=== PATIENT | male | born 1935 | race Caucasian/White ===

== ENCOUNTER 2024-02-27 01:10 | Emergency (ER) | payer MEDICARE, OTHER, SELFPAY ==
[2024-02-27 01:27] VITALS: BP 93/54
--- NOTE | 2024-02-27 02:11 | ED.GENMED ---
History of Present Illness
General
Chief Complaint: Fall
Source: ambulance crew and correction
Exam Limitations: dementia
Time Seen by Provider: 02/27/24 01:21
Nursing documentation reviewed up to this point in time: agreed with
History of Present Illness
History of Present Illness:
This is an 88-year-old gentleman who was recently admitted to [facility] [place] February 16. 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
COPD, CHF, hyperkalemia, obstructive sleep apnea. He is sent to the ED for evaluation after suffering an unwitnessed fall. According to EMS no evidence of injury. Patient is at his baseline mental status.
He is also noted to be COVID-positive.
residential records reveal patient is DNR status.
There is also note of outpatient blood work noting potassium of 6, on-call correction physician aware and recommended discontinuing spironolactone.
Patient is awake and alert, nonverbal. I suspect he does not understand Bangladeshi but he does follow a few simple commands when motioned to do so.
Past History
Past History
ED Past Medical History: Arrthythmia (Paroxysmal atrial fibrillation), CAD, Cancer (Prostate cancer), CHF, COPD, GERD, HTN, Hypercholesterolemia, NIDDM, [place], Renal failure (Chronic kidney disease stage III) and Other (Obstructive sleep apnea,
pneumonia, sepsis, pleural effusion, metabolic encephalopathy, bladder cancer, UTI, COVID-positive January 2024)
Social History
Living: correction
Family History
Family History: Unable to obtain
Phy Exam
Physical Exam
Physical Exam:
GENERAL: 88-year-old gentleman appears his stated age, he is awake and alert, pleasant, appears in no acute distress. Nonverbal. He does follow a few simple commands.
EYE: The head is normocephalic, atraumatic. Pupils equal and reactive. anicteric
NECK: Supple, nontender, no meningismus, no significant adenopathy.
ENT: posterior pharynx is clear, oral mucosa is moist. TM clear b/l, nares patent.
CARDIAC: Regular rate and rhythm. no murmur.
LUNGS: Clear breath sounds bilaterally, no acute respiratory distress, no wheezes/rales/rhonchi
ABDOMEN: Soft, nondistended, without focal tenderness, no r/g, no cvat. normoactive BS.
NEUROLOGICAL: Awake and alert, nonverbal, no focal neuro deficits.
SKIN: Warm and dry, normal color, fair turgor, skin intact. Few dark purple subacute ecchymotic patches bilateral forearms. No soft tissue swelling.
MUSCULOSKELETAL: No C/C/E. peripheral pulses are full and equal b/l. No palpable tenderness. Full range of motion of extremities without difficulty nor pain.
PSYCH: Nonverbal. I suspect language barrier. Following a few simple commands. Cooperative.
Course
Orders/Labs/Results
Orders:
Orders
02/27/24 01:39
CT Head W/o Iv Contrast Urgent
Comment:
Reason For Exam: unwitnessed fall, on Eliquis
Vital Signs
Initial and Last Documented VS:
Initial Vital Signs
Temp Pulse Resp BP Pulse Ox
97.7 F 57 20 93/54 94
02/27/24 01:27 02/27/24 01:27 02/27/24 01:27 02/27/24 01:27 02/27/24 01:27
Last Documented Vital Signs
Temp Pulse Resp BP Pulse Ox
97.7 F 57 20 93/54 91
02/27/24 01:27 02/27/24 01:27 02/27/24 01:27 02/27/24 01:27 02/27/24 01:50
MDM/Problems Addressed
Differential Diagnosis Includes:
Elderly gentleman from correction presents after suffering an unwitnessed fall.
History of PAF maintained on Eliquis.
No traumatic findings on exam.
Appears to be at his baseline neurostatus.
Hemodynamically stable. Mildly soft BP but appears to be his baseline.
He has history of hyperkalemia as per correction records and reported potassium of 6. Already acknowledged by correction physician with orders to discontinue diuretic. At this point no indication to repeat labs.
Will check CT of the head.
Chronic conditions affecting care: DM, HTN, CAD, Arrhythmia (Chronically maintained on Eliquis. Risk for bleeding.), COPD, Neurological disorder, Kidney disease and Cancer
*Radiology
Radiology exam reviewed: radiology read reviewed (CT of the head shows no acute traumatic findings.)
*Pulse Oximetry
Patient hypoxic: no
*Radio News Writer Interpretation
Rate: bradycardiac
Interpretation: normal
Rhythm: sinus
*Critical Care Note
Total Time (30-74mins, 75-104mins- exclusive of procedures): Not Applicable
Update Note
Update Note:
02/27/[address] of the head is unremarkable.
Patient remains awake and alert, asking for sips of water.
Appears comfortable, in no distress, denies pain.
Will discharge back to correction for continued care.
ED Attending Note
-
Portions of this chart may have been created with voice recognition software.� Occasional wrong word or��sound alike� substitutions may have occurred due to the inherent limitations of voice recognition software.
Discharge Plan
Departure
Patient Disposition: Assisted/SNF
Date of Disposition: 02/27/24
Time of Disposition: 02:53
Patient with high blood pressure during this ER visit?: No
Condition: Good
Discharge Problem:
Fall at correction
Instructions: Preventing falls in adults
Referrals:
Stephen Carreon MD [Family Provider] - Call in 1-3 days for appt
Interventions
Interventions:
*General Assessment Last Done: 02/27/24 01:50
*Neglect/Abuse Screening Last Done: 02/27/24 01:50
*ED COVID-19 Vaccine History Last Done: 02/27/24 01:48
ED-Musculoskeletal Assessment Last Done: 02/27/24 01:50
ED- Neurological Assessment Last Done: 02/27/24 01:50
ED-Skin Assessment Last Done: 02/27/24 01:50
Discharge Date and Time
Print Language: GUATEMALAN
[2024-02-27 02:36] VITALS: BP 86/56
[2024-02-27 02:38] VITALS: BP 95/56
[2024-02-27 03:00] VITALS: BP 86/50
--- NOTE | 2024-02-27 14:10 | CM ---
YEE was contacted by Norma from [facility]. She is requesting a DUC referral sent to [facility]. YEE sent referral.
== END 2024-02-27 04:07 ==
LOC: EMR 01:10
PROVIDERS: EMERGENCY PHYSICIAN Emergency Medicine; FAMILY PHYSICIAN Internal Medicine
DX: Z03.89 Encounter for observation for other suspected diseases and conditions ruled out (principal); U07.1 COVID-19; W19.XXXA Unspecified fall, initial encounter; Y92.129 Unspecified place in nursing home as the place of occurrence of the external cause; R79.89 Other specified abnormal findings of blood chemistry; F02.80 Dementia in other diseases classified elsewhere, unspecified severity, without behavioral disturbance, psychotic disturbance, mood disturbance, and anxiety; G30.9 Alzheimer's disease, unspecified; I48.0 Paroxysmal atrial fibrillation; I13.0 Hypertensive heart and chronic kidney disease with heart failure and stage 1 through stage 4 chronic kidney disease, or unspecified chronic kidney disease; I50.9 Heart failure, unspecified; N18.30 Chronic kidney disease, stage 3 unspecified; E11.22 Type 2 diabetes mellitus with diabetic chronic kidney disease; E78.00 Pure hypercholesterolemia, unspecified; I42.9 Cardiomyopathy, unspecified; G47.33 Obstructive sleep apnea (adult) (pediatric); I25.10 Atherosclerotic heart disease of native coronary artery without angina pectoris; K21.9 Gastro-esophageal reflux disease without esophagitis; J44.9 Chronic obstructive pulmonary disease, unspecified; Z66 Do not resuscitate; I25.2 Old myocardial infarction; Z79.01 Long term (current) use of anticoagulants; Z85.46 Personal history of malignant neoplasm of prostate; Z85.51 Personal history of malignant neoplasm of bladder; Z87.440 Personal history of urinary (tract) infections
CPT/HCPCS: 99284; 70450

== ENCOUNTER 2024-03-12 14:40 | Inpatient (IN) | payer MEDICARE, OTHER, SELFPAY ==
[2024-03-12] VITALS (13 sets, daily range): BP systolic 69–99; BP diastolic 36–64; BMI 23.0; BMI 22.8
--- NOTE | 2024-03-12 09:18 | ED.GENMED ---
History of Present Illness
General
Chief Complaint: Weakness
Source: patient, records and ambulance crew
Exam Limitations: clinical condition, altered mental status and dementia
Time Seen by Provider: 03/12/24 08:56
Nursing documentation reviewed up to this point in time: agreed with
History of Present Illness
History of Present Illness:
88 male from a local [place] [facility] presents with fatigue, confusion EMS was called found to be bradycardic and hypotensive, was given atropine and 500 of saline perked up a little bit though still hypotensive, here is asking for water, looks
chronically ill, was seen in the ER a week or so ago with similar complaints at which time it was noted that he had COVID was deemed to be stable for discharge and sent back to his facility
Past History
Past History
ED Past Medical History: Arrthythmia (Paroxysmal atrial fibrillation), CAD, Cancer (Prostate cancer), CHF, COPD, GERD, HTN, Hypercholesterolemia, NIDDM, [place], Renal failure (Chronic kidney disease stage III) and Other (Obstructive sleep apnea,
pneumonia, sepsis, pleural effusion, metabolic encephalopathy, bladder cancer, UTI, COVID-positive January 2024)
Social History
Tobacco: Non-smoker
Alcohol: None
Drug: None
Living: [place] [facility]
Employment: Not employed
Family History
Family History: Unable to obtain
Review of Systems
Review of Systems
Unable to obtain full review of systems at this time due to: dementia
Other source history: ambulance crew
All Other Systems: Not applicable
Phy Exam
Physical Exam
Physical Exam:
Physical Exam
General: Chronically ill-appearing male bradycardic type with
Neck: Dry lips
Heart: s1/s2 regular rate and rhythm, no murmur. equal radial pulses.
Lungs: Bibasilar
Abdomen: Soft mild lower abdominal tender
Neuro: Opens eyes to voice, easily arousable, person tells me he is thirsty
Skin: no rash
Psychiatric: cooperative
Extremities: no edema.
Course
Orders/Labs/Results
Orders:
Orders
03/12/24 09:14
Electrocardiogram (*1) Urgent
Reason for Study: Other
Other Reason for Exam: sepsis
Cardiac Monitoring- Treatment ONCE
EKG- Treatment ONCE
IV Insert/Care/Rem.- Treatment PRN
0.9% Sodium Chloride 1000 ml [Nss] 1,000 ml IV BOLUS
CR Chest Portable - 1 View Urgent
Comment:
Reason For Exam: lowo bp
Reason Study Needs to be Portable: Patient Unstable
03/12/24 09:37
Complete Blood Count/With Diff Urgent
Comprehensive Metabolic Panel Urgent
03/12/24 10:37
0.9% Sodium Chloride 500 ml [Nss] 500 ml IV BOLUS
03/12/24 10:45
Urinalysis Reflex To Culture Urgent
Date Specimen was Collected: 03/12/24
Time Specimen was Collected: 10:39
Urine Microscopic Reflex Cult Urgent
Urine Culture Urgent
STEVE Source: U
Specimen Description:
Date Specimen was Collected: 03/12/24
Time Specimen was Collected: 10:39
03/12/24 12:27
Case Management Consult ONCE
Case Management Consult: Hospice
Hospice: Evaluation and treat
Abnormal Lab Results
03/12/24 03/12/24
09:37 10:45
RBC 4.06 L 10^6/uL
(4.70-6.10)
Hgb 11.8 L g/dL
(13.0-18.0)
Hct 34.4 L %
(39.0-52.0)
Plt Count 119 L 10^3/uL
(130-400)
MPV 10.7 H fL
(7.4-10.4)
Sodium 131 L mmol/L
(135-145)
Potassium 5.9 H mmol/L
(3.5-5.1)
Carbon Dioxide 18 L mmol/L
(22-30)
BUN 55 H mg/dl
(9-20)
Creatinine 1.8 H mg/dL
(0.7-1.3)
Total Protein 6.0 L g/dl
(6.3-8.2)
Albumin 3.1 L g/dl
(3.5-5.0)
Urine Nitrite (Reflex) Positive A
(Negative)
Leukocyte Esterase Rfl Trace A
(Negative)
Urine Bacteria (Reflex) Many A
(Negative)
03/12/24 09:37
03/12/24 09:37
Vital Signs
Initial and Last Documented VS:
Initial Vital Signs
Pulse Resp BP Pulse Ox
60 16 85/64 96
03/12/24 08:55 03/12/24 08:55 03/12/24 08:55 03/12/24 08:55
Last Documented Vital Signs
Temp Pulse Resp BP Pulse Ox
97.4 F 51 14 90/44 95
03/12/24 09:22 03/12/24 12:00 03/12/24 12:00 03/12/24 12:21 03/12/24 09:50
MDM/Problems Addressed
Differential Diagnosis Includes:
Sepsis dehydration UTI electrolyte abnormality renal failure conceivably primary cardiac event pneumonia
MDM/Problems Addressed:
Fatigue bradycardia weakness hypotensive
Chronic conditions affecting care: HTN, Neurological disorder and Kidney disease
Acute Exacerbation and/or Progression of Chronic Illness: HTN, Neurological disorder and Kidney disease
*Radiology
Radiology exam reviewed: radiology read reviewed
*Pulse Oximetry
Patient hypoxic: no
*EKG
Interpreted by ED Provider?: Yes
Interpretation: normal
Comparison EKG: no comparison EKG present
Heart Rate: 62
Rate: normal
Rhythm: sinus
Ischemia: no ischemia
*Contract Designer Interpretation
Rate: normal
Interpretation: normal
Heart Rate: 62
Rhythm: sinus
*Critical Care Note
Total Time (30-74mins, 75-104mins- exclusive of procedures): 20
Update Note
Update Note:
10:45 AM labs noted chest x-ray noted report noted EKG noted looks dry we will give another liter saline he is DNR/DNI status,
Update after 2 L blood pressure still low suspect he is not taking sufficient nutrients or food and is evidenced by the fact that I had an sip some water in the immediately started to gag and aspirate
Will ask case management to get their opinion re: hospice etc.
Discussed with catalytic case operator discussed with patient's son that he is not ready for hospice now at this point will require admission
ED Attending Note
-
Portions of this chart may have been created with voice recognition software.� Occasional wrong word or��sound alike� substitutions may have occurred due to the inherent limitations of voice recognition software.
Discharge Plan
Departure
Patient Disposition: Admit
Date of Disposition: 03/12/24
Time of Disposition: 13:28
Admit to: Med/Surg
Presentation/result/management discussed w/ accepting MD/DO: Hospitalist
Patient with high blood pressure during this ER visit?: No
Condition: Fair
Covid-19: Not Applicable
Discharge Problem:
Dehydration
Prescriptions:
No Action
atorvastatin 40 mg Tablet
40 mg PO DAILY
metformin 500 mg Tablet
500 mg PO DAILY
sennosides [senna] 8.6 mg Tablet
8.6 mg PO DAILYPRN PRN (Reason: constipation)
acetaminophen 325 mg Tablet
650 mg PO Q6HPRN PRN (Reason: temp >100.4/mild pain)
lidocaine 4 % Adhesive Patch,Medicated
1 patch TOPICAL DAILY
glipizide 10 mg Tablet
10 mg PO DAILY
travoprost [Travatan Z] 0.004 % Drops
1 drp BOTH EYES DAILY
meclizine 12.5 mg Tablet
12.5 mg PO TIDPRN PRN (Reason: dizziness)
aspirin 81 mg Tablet,Delayed Release (Dr/Ec)
81 mg PO DAILY
acetaminophen 500 mg Tablet
500 mg PO Q6HPRN PRN (Reason: mild pain)
prednisolone acetate 1 % Drops,Suspension
1 drp BOTH EYES QID
temazepam 15 mg Capsule
15 mg PO HSPRN PRN (Reason: insomnia/sleep)
magnesium hydroxide [Milk of Magnesia] 400 mg/5 mL Suspension
30 ml PO A12VQDL PRN (Reason: no bm 3 days)
carboxymethylcellulose sodium 0.5 % Drops
1 drp BOTH EYES DAILYPRN PRN (Reason: irritated eyes)
bisacodyl 10 mg Suppository
10 mg IA DAILYPRN PRN (Reason: if no results from mom)
erythromycin 5 mg/gram (0.5 %) Ointment
1 applic RIGHT EYE HS
betamethasone dipropionate 0.05 % Cream
1 applic TOPICAL DAILY
clonidine 0.3 mg/24 hr Patch Weekly
1 patch TRANSDERMAL SA
metoprolol succinate 25 mg Tablet Extended Release 24 Hr
25 mg PO DAILY
Rx Instructions:
Hold if SBP<100 pulse<60
timolol maleate 0.5 % Drops
1 drp BOTH EYES BID
clotrimazole [Lotrimin AF (clotrimazole)] 1 % Cream
1 applic TOPICAL DAILY
repaglinide 1 mg Tablet
1 mg PO BID
insulin lispro 100 unit/mL Insulin Pen
0 sliding scale dose SC ACHS
Rx Instructions:
150-200=2u,201-250=4u,251-300=6u,301-350=8u,351-400=10u
risperidone 1 mg Tablet,Disintegrating
1 mg PO BID
memantine 5 mg Tablet
7.5 mg PO DAILY
chlorhexidine gluconate [Peridex] 0.12 % Mouthwash
15 ml BUCCAL BID
fluticasone propion-salmeterol [Advair HFA] 230-21 mcg/actuation Hfa Aerosol Inhaler
2 puff INHALATION R BID
diclofenac sodium [Voltaren Arthritis Pain] 1 % Gel
2 g TOPICAL Q6HPRN PRN (Reason: mild pain)
cholecalciferol (vitamin D3) [Vitamin D3] 50 mcg (2,000 unit) Tablet
50 mcg PO DAILY
dexlansoprazole [Dexilant] 60 mg Capsule,Biphase Delayed Releas
60 mg PO DAILY
linagliptin 5 mg Tablet
5 mg PO NOON
Eliquis 2.5 mg Tablet
2.5 mg PO BID
Simbrinza 1-0.2 % Drops,Suspension
1 drp BOTH EYES DAILY
Incruse Ellipta 62.5 mcg/actuation Blister With Device
1 inh INHALATION R DAILY
Linzess 72 mcg Capsule
72 mcg PO DAILY
latanoprost (PF) 0.005 % Dropperette
1 drp BOTH EYES HS
Referrals:
Stephen Carreon MD [Family Provider] -
Interventions
Interventions:
*Risk Screen - Suicide Last Done: 03/12/24 09:07
*General Assessment Last Done: 03/12/24 09:07
*Neglect/Abuse Screening Last Done: 03/12/24 09:07
ED- Cardiac Assessment Last Done: 03/12/24 09:07
ED- Neurological Assessment Last Done: 03/12/24 09:07
ED- Pulmonary Assessment Last Done: 03/12/24 09:50
Discharge Date and Time
Print Language: AUSTRALIAN
[2024-03-12] MEDS: NSS 1000 IV ×2 (09:25→16:01)
[2024-03-12 09:50] LABS: % Basophils 0.2 % (0-2); % Eosinophils 2.7 % (0-6); % Immature Granulocytes 0.2 % (0-0.5); % Monocytes 8.8 % (1.7-9.3); % Neutrophils 64.1 % (42.2-75.2); Absolute Eosinophils 0.2 10^3/uL (0-0.7); Absolute Lymphocytes 1.5 10^3/uL (1.2-3.4); Absolute Monocytes 0.5 10^3/uL (0.1-0.6); Absolute Neutrophils 3.9 10^3/uL (1.4-6.5); Hematocrit 34.4 % (39.0-52.0); Hemoglobin 11.8 g/dL (13.0-18.0); Mean Corp Hgb Conc. 34.3 g/dL (33.0-37.0); Mean Corpuscular Hgb 29.1 pg (27.0-31.0); Mean Corpuscular Volume 84.7 fL (80.0-94.0); Mean Platelet Volume 10.7 fL (7.4-10.4); Nucleated Red Blood Cells % 0 % (-); Platelet Count 119 10^3/uL (130-400); Red Blood Cell Count 4.06 10^6/uL (4.70-6.10); Red Cell Dist. Width 14.2 % (11.5-14.5)
[2024-03-12 10:02] LABS: ALT (SGPT) 18 U/L (0-50); AST (SGOT) 26 U/L (17-59); Albumin 3.1 g/dl (3.5-5.0); Alkaline Phosphatase 82 U/L (38-126); Blood Urea Nitrogen 55 mg/dl (9-20); Calcium 8.7 mg/dl (8.4-10.2); Carbon Dioxide 18 mmol/L (22-30); Chloride 103 mmol/L (98-107); Estimated Creatinine Clearance 27 ml/min; Glucose 93 mg/dl (70-99); Potassium 5.9 mmol/L (3.5-5.1); Sodium 131 mmol/L (135-145); eGFR 35.76
[2024-03-12] MEDS: NSS 500 IV (10:45)
[2024-03-12 11:14] LABS: Urine Albumin Negative (Neg - Trace); Urine Bilirubin Negative (Negative); Urine Character Slightly Cloudy (Clear); Urine Color Yellow; Urine Glucose Negative (Negative); Urine Ketone Negative (Negative); Urine Leukocyte Trace (Negative); Urine Nitrite Positive (Negative); Urine Occult Blood Negative (Negative); Urine Urobilinogen Negative (Neg - 1+)
[2024-03-12 11:41] LABS: Urine Amorphous Seen
[2024-03-12 11:42] LABS: Urine Bacteria Many (Negative); Urine Red Blood Cell 0-2 /HPF (0-2)
--- NOTE | 2024-03-12 13:18 | CM ---
Addendum entered by Leonor Dejesus RN 03/12/24 13:20:
Of note, patient is LTC at [facility].
Original Note:
CM received consult for hospice. CM spoke with patient's son who requested physician to call son to discuss patient's prognosis. Cm will remain available.
--- NOTE | 2024-03-12 13:27 | CM ---
CM updated [facility] admission coordinator with hospice discussions pending.
--- NOTE | 2024-03-12 14:08 | HPS.HSE ---
Family Physician
-
Family Physician: Stephen Carreon MD
Chief Complaint
-
hypotension and bradycaria
History of Present Illness
I could not get any information from the patient as AMS and Demnetia
Information gathered by chart review and speaking with the ER staff.
88M Res of local [facility] seen at ER [facility] for hypotension and bradycaria
- per EMS fatigue, confusion
- EMS was called found to be bradycardic and hypotensive- EMS given atropine and IV NS 500 and still hypotensive, - - He looks chronically ill, was seen in the ER a week or so ago with similar complaints- it was noted that he had COVID was
deemed to be stable for discharge and sent back to his facility ( COVID-positive January
Medical History
Past Medical History
Past Medical History: Reports Other
Additional Past Medical History:
PAF
CAD
Prostate cancer
CHF
CKD3
COPD
GERD
HTN
Hypercholesterolemia
NIDDM
[place]
Obstructive sleep apnea
PNA
Sepsis
Pleural effusion,
TME
Bladder cancer
UTI
Past Surgical History: Reports Other
Social History
Unable to obtain full social history at this time due to: Dementia
Tobacco: Non-smoker
Alcohol: None
Drug: None
Living: Residential
Family History
Family History: Not pertinent
Allergies / Home Medications
Allergies reflects when Allergies were last updated in [employer].
Home Medications with original date entered in [employer]
Allergy/Medication List:
Allergies
Allergy/AdvReac Type Severity Reaction Status Date / Time
No Known Allergies Allergy Unverified 03/12/24 09:11
Home Medications
acetaminophen 325 mg tablet 650 mg PO Q6HPRN PRN temp >100.4/mild pain 03/12/24
acetaminophen 500 mg tablet 500 mg PO Q6HPRN PRN mild pain 03/12/24
apixaban 2.5 mg tablet (Eliquis) 2.5 mg PO BID Blood Clot Prevention/Tx 03/12/24
aspirin 81 mg tablet,delayed release 81 mg PO DAILY Blood Clot Prevention/Tx 03/12/24
atorvastatin 40 mg tablet 40 mg PO DAILY High Cholesterol 03/12/24
betamethasone dipropionate 0.05 % topical cream 1 applic topical DAILY skin condition 03/12/24
bisacodyl 10 mg rectal suppository 10 mg NM DAILYPRN PRN if no results from mom 03/12/24
brinzolamide 1 %-brimonidine 0.2 % eye drops,suspension (Simbrinza) 1 drp BOTH EYES DAILY Eye Condition 03/12/24
carboxymethylcellulose sodium 0.5 % eye drops 1 drp BOTH EYES DAILYPRN PRN irritated eyes 03/12/24
chlorhexidine gluconate 0.12 % mouthwash (Peridex) 15 ml buccal BID oral hygiene 03/12/24
cholecalciferol (vitamin D3) 50 mcg (2,000 unit) tablet (Vitamin D3) 50 mcg PO DAILY Supplement 03/12/24
clonidine 0.3 mg/24 hr weekly transdermal patch 1 patch transdermal SA Blood Pressure 03/12/24
clotrimazole 1 % topical cream (Lotrimin AF (clotrimazole)) 1 applic topical DAILY B/L feet 03/12/24
dexlansoprazole 60 mg capsule,biphase delayed release (Dexilant) 60 mg PO DAILY Gastrointestinal Issue 03/12/24
diclofenac sodium 1 % topical gel (Voltaren Arthritis Pain) 2 g topical Q6HPRN PRN mild pain 03/12/24
erythromycin 5 mg/gram (0.5 %) eye ointment 1 applic RIGHT EYE HS Eye Condition 03/12/24
fluticasone propionate 230 mcg-salmeterol 21 mcg/actuation HFA inhaler (Advair HFA) 2 puff inhalation R BID Lung/Breathing Issues 03/12/24
glipizide 10 mg tablet 10 mg PO DAILY Diabetes 03/12/24
insulin lispro 100 unit/mL subcutaneous pen 0 sliding scale dose SC ACHS Diabetes 03/12/24
latanoprost (PF) 0.005 % eye drops in a dropperette 1 drp BOTH EYES HS Eye Condition 03/12/24
lidocaine 4 % topical patch 1 patch topical DAILY lower back 03/12/24
linaclotide 72 mcg capsule (Linzess) 72 mcg PO DAILY Constipation 03/12/24
linagliptin 5 mg tablet 5 mg PO NOON Diabetes 03/12/24
magnesium hydroxide 400 mg/5 mL oral suspension (Milk of Magnesia) 30 ml PO [id number] PRN no bm 3 days 03/12/24
meclizine 12.5 mg tablet 12.5 mg PO TIDPRN PRN dizziness 03/12/24
memantine 5 mg tablet 7.5 mg PO DAILY cognition/memory 03/12/24
metformin 500 mg tablet 500 mg PO DAILY Diabetes 03/12/24
metoprolol succinate 25 mg tablet,extended release 24 hr 25 mg PO DAILY Blood Pressure 03/12/24
prednisolone acetate 1 % eye drops,suspension 1 drp BOTH EYES QID Eye Condition 03/12/24
repaglinide 1 mg tablet 1 mg PO BID Diabetes 03/12/24
risperidone 1 mg disintegrating tablet 1 mg PO BID Mental Health/Anxiety 03/12/24
sennosides 8.6 mg tablet (senna) 8.6 mg PO DAILYPRN PRN constipation 03/12/24
temazepam 15 mg capsule 15 mg PO HSPRN PRN insomnia/sleep 03/12/24
timolol maleate 0.5 % eye drops 1 drp BOTH EYES BID Eye Condition 03/12/24
travoprost 0.004 % eye drops (Travatan Z) 1 drp BOTH EYES DAILY Eye Condition 03/12/24
umeclidinium 62.5 mcg/actuation blister powder for inhalation (Incruse Ellipta) 1 inh inhalation R DAILY Lung/Breathing Issues 03/12/24
Review of Systems
-
Unable to obtain full review of systems at this time due to: Dementia
Physical Exam
Vital Signs
Vital Signs
Temp Pulse Resp BP Pulse Ox
97.4 F 48 17 80/45 95
03/12/24 09:22 03/12/24 14:00 03/12/24 14:00 03/12/24 14:00 03/12/24 09:50
Physical Exam
General: No Apparent Distress and Other (confused )
HEENT: NormoCephalic and Anicteric; No Moist mucous membranes (dry)
Respiratory: No Wheezes or Rhonchi
Cardiac: S1/S2 and Regular Rhythm
GI: Soft, Non Tender, Non Distended and Normal Bowel Sounds
Rectal: Deferred by Provider
Genito-urinary: Deferred by me
Musculoskeletal: No Edema
Skin: No Warm (cold periphery )
Neuro: Awake, Alert and Other (symmetric movement in all extremities ); No Oriented
Psych: Confused
Laboratory Results
-
03/12/24 09:37
03/12/24 09:37
Laboratory Results
Total Bilirubin 1.0 mg/dl (0.2-1.3) 03/12/24 09:37
AST 26 U/L (17-59) 03/12/24 09:37
ALT 18 U/L (0-50) 03/12/24 09:37
Alkaline Phosphatase 82 U/L (38-126) 03/12/24 09:37
Data Reviewed
-
Diagnostic Radiology: Report Reviewed by me
Lab Data: Labs Reviewed by me
Impression/Plan
-
Data
Vital Signs
Temp Pulse Resp BP Pulse Ox
97.4 F 48 17 80/45 95
03/12/24 09:22 03/12/24 14:00 03/12/24 14:00 03/12/24 14:00 03/12/24 09:50
Data:
Laboratory Tests
03/12/24
09:37
WBC 6.0
Hgb 11.8 L
Plt Count 119 L
Sodium 131 L
Potassium 5.9 H
EKG:
SINUS RHYTHM WITH 1ST DEGREE A-V BLOCK
INFERIOR INFARCT , AGE UNDETERMINED
ABNORMAL ECG
NO PREVIOUS ECGS AVAILABLE
CXR: No radiographic evidence of acute cardiopulmonary abnormality.
No prior DH and hospitalist admission:
ASSESSMENT & PLAN
TME due to following metabolic stress plus or minus sepsis
Severely deconditioning s/p acute viral Covid in 2023 complicated with dehydration
Severe hypotension suspect volume contraction
Acute electrolytes and acid base disorder
Hyperkalemia
Hyponatremia
Metabolic acidosis
Azotemia
- Eval for sepsis ( PCT and LA) NEG CXR. NEG UA.
- s/p IV NS bolus 2 L at ER
- Repeat BMP in 6hrs and AM
- Hold Clonidine , Metoprolol
Eval for sepsis
- Cloudy urine but not looks infected
- NEG CXR
- check PCT and LA
Severe hypotension
HX benign HTN
- Hold Clonidine , Metoprolol succinate
- IV NS
- Obserev BP
NIDDM
- Hold OHG agent
- add ISS low
HX Prx AF
- c/w Eliquis 2.5mg BID
HX CAD/[place]
- c/w ASA
Known HX:
HX Dementia on memantine
PAF
CAD, [place]
Prostate cancer
CHF
CKD3
COPD
GERD
Hypercholesterolemia
Obstructive sleep apnea
PNA
Sepsis
Pleural effusion,
TME
Bladder cancer
UTI
DVT Px: on Eliquis
DNR
IP TLM
[2024-03-12 14:24] LABS: Lactic Acid 0.6 mmol/L (0.7-2.0)
[2024-03-12 14:40] LABS: Procalcitonin < 0.05 ng/ml (0.0-0.25)
[2024-03-12 17:28] LABS: Glucose - Point of Care 77 mg/dl (70-99)
[2024-03-12] MEDS: D5/0.9% SODIUM CHLORIDE 1000 IV (18:30)
[2024-03-12] MEDS: ADVAIR HFA 230/21 MCG INHALER 2 PUFF INH (20:01)
[2024-03-12] MEDS: ELIQUIS PO ×2 (20:37→20:55)
[2024-03-12] MEDS: TIMOPTIC 0.5% OPHTHALMIC SOLUTION BOTH EYES ×3 (20:38→20:56)
[2024-03-12] MEDS: ERYTHROMYCIN 0.5% OPHTHALMIC OINTMENT RIGHT EYE ×2 (20:38→20:56)
--- NOTE | 2024-03-12 20:40 | PTCARENOTE ---
Patient confused, uncooperative with any care. Patient refusing to take any PO medications, refused Eliquis. Refused to let this RN administer any eye gtts/ointments. Refusing to wear heart monitor. TARSHA Ramírez made aware. No new orders
received at this time. Will monitor.
[2024-03-12] MEDS: XALATAN OPHTHALMIC SOLUTION BOTH EYES ×2 (20:41→20:56)
[2024-03-13 00:12] LABS: Glucose - Point of Care 77 mg/dl (70-99)
[2024-03-13 00:54] VITALS: BMI 22.8
[2024-03-13] MEDS: NSS IV (01:39)
--- NOTE | 2024-03-13 02:11 | PTCARENOTE ---
Patient continues to refuse any care. Refused lab draw, attempted x2 to get BMP. Patient uncooperative and becoming combative. Remote video monitoring in the room and ineffective in keeping patient from pulling at IV's and pulling at drainage bag
attached to urostomy. Order received from Lorraine Degroot, for B/L soft limb restraints. Will monitor.
[2024-03-13 03:00] VITALS: BP 107/59
[2024-03-13 06:00] VITALS: BMI 21.7
[2024-03-13 06:01] LABS: Glucose - Point of Care 118 mg/dl (70-99)
[2024-03-13 07:37] VITALS: BP 105/50
[2024-03-13] MEDS: ADVAIR HFA 230/21 MCG INHALER 2 PUFF INH (08:20)
[2024-03-13] MEDS: SPIRIVA RESPIMAT 2.5 MCG 2 PUFF INH (08:20)
[2024-03-13] MEDS: ASPIR LOW (ENTERIC COATED) 81 MG PO (09:03)
[2024-03-13] MEDS: TIMOPTIC 0.5% OPHTHALMIC SOLUTION 1 DROP BOTH EYES ×2 (09:03→19:36)
[2024-03-13] MEDS: ELIQUIS 2.5 MG PO ×2 (09:03→19:38)
[2024-03-13] MEDS: D5/0.9% SODIUM CHLORIDE 1000 IV ×2 (09:04→22:15)
--- NOTE | 2024-03-13 09:06 | W.PN.HOSP.TC ---
Today's Communication/Plan
-
Workup for sepsis and adrenal insufficiency
Empiric antibiotics pending cultures
Assessment / Plan
Assessment / Plan
Impression:
88 yo male senior care resident with history of dementia and CVA presents from nursing facility with reported altered mental status transient hypotension and bradycardia.
Toxic metabolic encephalopathy secondary to below
Concern for evolving sepsis. (Hypotension, bradycardia)
Abnormal urinalysis
Aspiration risk
Acute kidney injury (? CKD unknown baseline)
Hyponatremia with hypovolemia
Hyperkalemia
Metabolic acidosis
Conditions prior to admission:
Recently seen in ED for asymptomatic COVID-19 infection.
Paroxysmal atrial fibrillation
Anticoagulation with Eliquis.
CAD. History of [place]
CHF unknown EF
CKD stage III unknown baseline creatinine
History of CVA.
COPD
Obstructive sleep apnea by history
Essential hypertension
Dyslipidemia
Diabetes type 2.
History of bladder/prostate carcinoma
History of UTI
GERD.
Plan:
Presentation with transient hypotension, bradycardia, lethargy.
Status post atropine given by EMT.
With hypotension, bradycardia, reasonable concern for evolving sepsis.
Reasonable aspiration risk given dementia.
Respiratory has been stable with no evidence of distress, bronchospasm. Does not require supplemental oxygen
Chest x-ray with clear lung head
Noted recent COVID positivity.
Urinalysis mildly abnormal.
Lactic acid normal.
Noted normal procalcitonin
Check blood cultures
Empiric ceftriaxone
Follow urine cultures
Aspiration precautions
Speech and swallow evaluation
Concern for adrenal insufficiency given hypotension, bradycardia, hyperkalemia.
TSH.
Serum cortisol level.
IV hydration
If persistent hypotension, consider further evaluation with ACTH stim test and empiric pulse steroids.
Altered mental status secondary to toxic metabolic encephalopathy possibly secondary to infection and metabolic abnormalities.
Underlying dementia.
Neurologic exam limited given patient dementia and patient being restrained.
CT head with old right hemispheric CVA and no acute abnormalities
Continue neurologic monitoring
Aspiration precautions
Speech and swallow evaluation
Acute kidney injury
Metabolic acidosis
Hyperkalemia
Normal lactic acid level
Suspect significant dehydration with hypovolemic hyponatremia
? CKD by records with unknown baseline creatinine.
Bladder scan.
IV hydration with isotonic solution
Follow BMP
Consider further imaging with renal ultrasound.
Paroxysmal atrial fibrillation
Presentation ECG with sinus rhythm first-degree AV block
Transient bradycardia reported prior to admission treated with atropine by EMT.
Continue telemetry monitoring.
Hold metoprolol
Continue Eliquis
CHF by history
Unknown EF.
Monitor volume status closely
Consider echocardiogram.
Essential hypertension
With hypotension, hold clonidine, metoprolol
CAD by history
Hold metoprolol secondary to hypotension.
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
Obstructive sleep apnea by history
Respiratory status stable
Chest x-ray with no infiltrate.
Continue DuoNeb 4 times daily as needed hold inhaled corticosteroids and long-acting bronchodilators given patient inability to follow commands.
Type 2 diabetes with hypoglycemia on presentation.
Hemoglobin A1c pending
Hold oral hypoglycemics including metformin, glipizide, linagliptin, repaglinide.
With hypoglycemia, continue dextrose with IV fluids.
Basal bolus protocol with serial Accu-Cheks
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
Supportive care.
Preadmission regimen including memantine, risperidone, temazepam. Will attempt to reintroduce once mental status stable
CODE STATUS DNR.
DVT prophylaxis Eliquis
Anticipated Discharge: > 48 hours
Subjective/Interval History
-
Date of Service: March 13, 2024
Objective Data
-
Labs:
Laboratory Results
11/12/24 11/12/24
01:00 06:00
WBC Pending
Hgb Pending
Hct Pending
Plt Count Pending
Sodium Cancelled Pending
Potassium Cancelled Pending
Chloride Cancelled Pending
Carbon Dioxide Cancelled Pending
BUN Cancelled Pending
Creatinine Cancelled Pending
Glucose Cancelled Pending
Calcium Cancelled Pending
Total Bilirubin Pending
AST Pending
ALT Pending
Alkaline Phosphatase Pending
Vital Signs:
Vital Signs
Temp Pulse Resp BP Pulse Ox
97.6 F 51 18 105/50 95
03/13/24 07:37 03/13/24 08:22 03/13/24 08:22 03/13/24 07:37 03/13/24 08:22
I&O
03/12/24 03/13/24 03/14/24
06:59 06:59 06:59
Intake Total 1999 / 1999
Output Total 1075 / 1075
Balance 925 / 925
Physical Exam
-
General: Well Developed and No Apparent Distress
HEENT: Normocephalic, Atraumatic and Moist Mucous Membranes
Respiratory: Clear to Auscultation
Cardiac: Regular Rhythm and S1/S2; Negative Murmur, Rub or Gallop
GI: Soft, Nontender, Nondistended and Normal Bowel Sounds; Negative Organomegaly
Rectal: Deferred by Provider
Musculoskeletal: No Clubbing, No Cyanosis and No Edema
Skin: Negative Rash
Neuro: Awake, Alert, Oriented (Name only) and Nonfocal/Grossly Intact (Limited exam as patient has been resting)
[2024-03-13] MEDS: STERILE WATER FOR INJECTION 10 ML IV (09:50)
[2024-03-13] MEDS: ROCEPHIN 1000 MG IV (09:52)
[2024-03-13 11:16] VITALS: BP 91/51
[2024-03-13 11:38] LABS: Glucose - Point of Care 136 mg/dl (70-99)
[2024-03-13] MEDS: NOVOLOG FLEXPEN-LOW RESISTANCE SC ×2 (12:13→17:32)
[2024-03-13 12:17] LABS: Cortisol, Random 11.4 ug/dl; TSH 3.29 uIU/ml (0.47-4.68)
[2024-03-13 12:32] LABS: ALT (SGPT) 17 U/L (0-50); AST (SGOT) 27 U/L (17-59); Albumin 2.9 g/dl (3.5-5.0); Alkaline Phosphatase 63 U/L (38-126); Blood Urea Nitrogen 42 mg/dl (9-20); Calcium 8.3 mg/dl (8.4-10.2); Carbon Dioxide 12 mmol/L (22-30); Chloride 112 mmol/L (98-107); Estimated Creatinine Clearance 38 ml/min; Glucose 127 mg/dl (70-99); Sodium 137 mmol/L (135-145); Total Bilirubin 0.5 mg/dl (0.2-1.3); Total Protein 5.8 g/dl (6.3-8.2); eGFR 58.17
--- NOTE | 2024-03-13 12:34 | PTOTSP ---
Dysphagia Evaluation
Patient presents with signs concerning for oral/pharyngeal dysphagia with multiple risk factors (i.e., dementia, COPD, GERD) but no signs concerning for aspiration complications at this time.
Resume baseline diet and initiate aspiration risk hydration protocol (given concerns for dehydration.) If family would like to determine safest least restrictive diet, consider video swallow study. If goals are for comfort/pleasure feeding,
consider liberalizing to puree and thin liquids.
Recommend:
1. Resume baseline diet (L4 Puree, L2 Mildly Thick)
2. Aspiration Risk Hydration Protocol - sips of water in between meals, after oral care, with nursing supervision
3. Medications - crushed in puree
4. Strategies: upright to 90 degrees, full supervision/assistance, small single sips/bites, slow rate, reflux precautions
5. Oral care 2-3x daily
6. Dysphagia tx follow up pending GOC.
[2024-03-13 14:52] VITALS: BP 128/93
--- NOTE | 2024-03-13 16:29 | CM ---
Alert awake confused patient who lives nursing home at [facility] Spoke with Norma at [facility] . 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 He is total care.He asked CM if CM was [place].Pt with Dementia
[facility]
PCP DR Stephen Carreon
PLAN Return to [facility]
[2024-03-13 16:54] LABS: Glucose - Point of Care 119 mg/dl (70-99)
[2024-03-13 16:57] LABS: Hematocrit 33.2 % (39.0-52.0); Hemoglobin 11.4 g/dL (13.0-18.0); Mean Corp Hgb Conc. 34.3 g/dL (33.0-37.0); Mean Corpuscular Hgb 29.3 pg (27.0-31.0); Mean Corpuscular Volume 85.3 fL (80.0-94.0); Mean Platelet Volume 11.2 fL (7.4-10.4); Platelet Count 134 10^3/uL (130-400); Red Blood Cell Count 3.89 10^6/uL (4.70-6.10); Red Cell Dist. Width 14.3 % (11.5-14.5)
[2024-03-13 19:25] VITALS: BP 102/52
[2024-03-13 21:30] LABS: Glucose - Point of Care 136 mg/dl (70-99)
[2024-03-13] MEDS: XALATAN OPHTHALMIC SOLUTION 1 DROP BOTH EYES (22:11)
[2024-03-13 23:03] VITALS: BP 103/46
[2024-03-13] MEDS: ERYTHROMYCIN 0.5% OPHTHALMIC OINTMENT 1 APPLIC RIGHT EYE (23:34)
[2024-03-14 03:35] VITALS: BP 107/50
[2024-03-14 06:00] VITALS: BMI 21.6
[2024-03-14 07:30] VITALS: BP 94/49
[2024-03-14 07:34] LABS: Glucose - Point of Care 125 mg/dl (70-99)
[2024-03-14] MEDS: NOVOLOG FLEXPEN-LOW RESISTANCE SC ×2 (08:04→19:10)
[2024-03-14] MEDS: ELIQUIS 2.5 MG PO (08:05)
[2024-03-14] MEDS: ASPIR LOW (ENTERIC COATED) 81 MG PO (08:05)
[2024-03-14] MEDS: TIMOPTIC 0.5% OPHTHALMIC SOLUTION 1 DROP BOTH EYES ×2 (08:06→19:39)
[2024-03-14 09:01] LABS: ALT (SGPT) 18 U/L (0-50); AST (SGOT) 27 U/L (17-59); Albumin 3.2 g/dl (3.5-5.0); Alkaline Phosphatase 83 U/L (38-126); Blood Urea Nitrogen 26 mg/dl (9-20); Calcium 8.6 mg/dl (8.4-10.2); Carbon Dioxide 19 mmol/L (22-30); Chloride 113 mmol/L (98-107); Direct Bilirubin 0.1 mg/dl (0.0-0.4); Estimated Creatinine Clearance 41 ml/min; Glucose 142 mg/dl (70-99); Potassium 4.7 mmol/L (3.5-5.1); Sodium 143 mmol/L (135-145); Total Bilirubin 0.6 mg/dl (0.2-1.3); Total Protein 6.3 g/dl (6.3-8.2); eGFR > 60.00
[2024-03-14 09:08] LABS: % Basophils 0.3 % (0-2); % Eosinophils 2.6 % (0-6); % Immature Granulocytes 0.3 % (0-0.5); % Lymphocytes 19.5 % (20.5-51.1); % Neutrophils 67.3 % (42.2-75.2); Absolute Eosinophils 0.2 10^3/uL (0-0.7); Absolute Lymphocytes 1.4 10^3/uL (1.2-3.4); Absolute Monocytes 0.7 10^3/uL (0.1-0.6); Absolute Neutrophils 4.8 10^3/uL (1.4-6.5); Hemoglobin 12.3 g/dL (13.0-18.0); Mean Corp Hgb Conc. 34.2 g/dL (33.0-37.0); Mean Corpuscular Hgb 29.4 pg (27.0-31.0); Mean Corpuscular Volume 86.1 fL (80.0-94.0); Mean Platelet Volume 11.4 fL (7.4-10.4); Nucleated Red Blood Cells % 0 % (-); Platelet Count 141 10^3/uL (130-400); Red Blood Cell Count 4.18 10^6/uL (4.70-6.10); Red Cell Dist. Width 14.6 % (11.5-14.5); White Blood Cell Count 7.2 10^3/uL (4.8-10.8)
[2024-03-14 09:34] LABS: Glycohemoglobin (HgbA1c) 6.3 % (4.0-5.6)
[2024-03-14] MEDS: D5/0.9% SODIUM CHLORIDE 1000 IV ×2 (10:33→23:34)
[2024-03-14] MEDS: STERILE WATER FOR INJECTION 10 ML IV (10:35)
[2024-03-14] MEDS: ROCEPHIN 1000 MG IV (10:35)
[2024-03-14 11:17] VITALS: BP 98/52
[2024-03-14 11:36] LABS: Glucose - Point of Care 169 mg/dl (70-99)
[2024-03-14] MEDS: NOVOLOG FLEXPEN-LOW RESISTANCE 1 UNITS SC (13:11)
--- NOTE | 2024-03-14 14:17 | W.PN.HOSP.TC ---
Today's Communication/Plan
-
Monitor oral intake
Continue IV fluids while recovering for hypotension.
Continue antibiotics/ceftriaxone pending final cultures.
Hold oral hypoglycemics. Continue basal bolus protocol with serial Accu-Cheks.
Assessment / Plan
Assessment / Plan
Impression:
88 yo male shelter resident with history of dementia and CVA presents from nursing facility with reported altered mental status transient hypotension and bradycardia.
Toxic metabolic encephalopathy secondary to below
Concern for evolving sepsis. (Hypotension, bradycardia)
Abnormal urinalysis
Aspiration risk
Acute kidney injury (? CKD unknown baseline)
Hyponatremia with hypovolemia
Hyperkalemia
Metabolic acidosis
Conditions prior to admission:
Recently seen in ED for asymptomatic COVID-19 infection.
Paroxysmal atrial fibrillation
Anticoagulation with Eliquis.
CAD. History of [place]
CHF unknown EF
CKD stage III unknown baseline creatinine
History of CVA.
COPD
Obstructive sleep apnea by history
Essential hypertension
Dyslipidemia
Diabetes type 2.
History of bladder/prostate carcinoma
History of UTI
GERD.
Plan:
Presentation with transient hypotension, bradycardia, lethargy.
Status post atropine given by EMT.
With hypotension, bradycardia, reasonable concern for evolving sepsis.
Reasonable aspiration risk given dementia.
Respiratory has been stable with no evidence of distress, bronchospasm. Does not require supplemental oxygen
Chest x-ray with clear lung head
Noted recent COVID positivity.
Urinalysis mildly abnormal.
Lactic acid normal.
Noted normal procalcitonin
Check blood cultures
Empiric ceftriaxone
Follow urine cultures
Aspiration precautions
Speech and swallow evaluation
Initially concern for adrenal insufficiency given hypotension, bradycardia, hyperkalemia.
TSH within normal limits
Serum cortisol level: 11.4/appropriate response
IV hydration
If persistent hypotension, consider further evaluation with ACTH stim test and empiric pulse steroids.
Altered mental status secondary to toxic metabolic encephalopathy possibly secondary to infection and metabolic abnormalities.
Underlying dementia.
Neurologic exam limited given patient dementia and patient being restrained.
CT head with old right hemispheric CVA and no acute abnormalities
Continue neurologic monitoring
Aspiration precautions
Speech and swallow evaluation, diet has been advanced.
Acute kidney injury
Metabolic acidosis
Hyperkalemia
Normal lactic acid level
Suspect significant dehydration with hypovolemic hyponatremia
? CKD by records with unknown baseline creatinine.
Bladder scan.
IV hydration with isotonic solution
Creatinine improving with volume expansion
Paroxysmal atrial fibrillation
Presentation ECG with sinus rhythm first-degree AV block
Transient bradycardia reported prior to admission treated with atropine by EMT.
Continue telemetry monitoring.
Hold metoprolol
Continue Eliquis
CHF by history
Unknown EF.
Monitor volume status closely
Consider echocardiogram.
Essential hypertension
With hypotension, hold clonidine, metoprolol
CAD by history
Hold metoprolol secondary to hypotension.
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
Obstructive sleep apnea by history
Respiratory status stable
Chest x-ray with no infiltrate.
Continue DuoNeb 4 times daily as needed hold inhaled corticosteroids and long-acting bronchodilators given patient inability to follow commands.
Type 2 diabetes with hypoglycemia on presentation.
Hemoglobin A1c 6.3
Hold oral hypoglycemics including metformin, glipizide, linagliptin, repaglinide.
With hypoglycemia, continue dextrose with IV fluids.
Basal bolus protocol with serial Accu-Cheks
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
Supportive care.
Preadmission regimen including memantine, risperidone, temazepam. Will attempt to reintroduce once mental status stable
CODE STATUS DNR.
DVT prophylaxis Eliquis
Anticipated Discharge: 24 - 48 hours
Subjective/Interval History
-
Date of Service: March 14, 2024
Objective Data
-
Labs:
Laboratory Results
03/13/24 03/14/24
16:33 08:23
WBC 7.0 7.2
Hgb 11.4 L 12.3 L
Hct 33.2 L 36.0 L
Plt Count 134 141
Sodium 143
Potassium 4.7
Chloride 113 H
Carbon Dioxide 19 L
BUN 26 H
Creatinine 1.1
Glucose 142 H
Calcium 8.6
Total Bilirubin 0.6
AST 27
ALT 18
Alkaline Phosphatase 83
Vital Signs:
Vital Signs
Temp Pulse Resp BP Pulse Ox
97.7 F 51 18 98/52 95
03/14/24 11:17 03/14/24 11:17 03/14/24 11:17 03/14/24 11:17 03/14/24 11:17
I&O
03/13/24 03/14/24 03/15/24
06:59 06:59 06:59
Intake Total 1999
Output Total 1075 / 1075 875 / 875
Balance 925 / 925 -865 / -865
Physical Exam
-
General: Well Developed and No Apparent Distress
HEENT: Normocephalic, Atraumatic and Moist Mucous Membranes
Respiratory: Clear to Auscultation
Cardiac: Regular Rhythm and S1/S2; Negative Murmur, Rub or Gallop
GI: Soft, Nontender, Nondistended and Normal Bowel Sounds; Negative Organomegaly
Rectal: Deferred by Provider
Musculoskeletal: No Clubbing, No Cyanosis and No Edema
Skin: Negative Rash
Neuro: Awake, Alert, Oriented (Name only) and Nonfocal/Grossly Intact (Limited exam as patient has been resting)
[2024-03-14 15:11] VITALS: BP 107/48
--- NOTE | 2024-03-14 16:17 | CM ---
Continues with hypotension.
Confused.
Maintained on med sitter.
Spoke with son Stephen he is in agreement that pt will return to [facility] when medically stable .
longterm at [facility]
report [phone]
fax [phone]
PLAN Return to [facility]
[2024-03-14 16:25] LABS: Glucose - Point of Care 161 mg/dl (70-99)
[2024-03-14 19:15] VITALS: BP 130/90
[2024-03-14] MEDS: ELIQUIS PO (19:44)
[2024-03-14 21:31] LABS: Glucose - Point of Care 144 mg/dl (70-99)
[2024-03-14 23:27] VITALS: BP 105/50
[2024-03-14] MEDS: XALATAN OPHTHALMIC SOLUTION 1 DROP BOTH EYES (23:33)
[2024-03-14] MEDS: ERYTHROMYCIN 0.5% OPHTHALMIC OINTMENT 1 APPLIC RIGHT EYE (23:33)
[2024-03-15 03:55] VITALS: BP 110/58
[2024-03-15 06:00] VITALS: BMI 21.5
[2024-03-15 07:46] LABS: Glucose - Point of Care 107 mg/dl (70-99)
[2024-03-15 08:45] VITALS: BP 116/90
[2024-03-15] MEDS: NOVOLOG FLEXPEN-LOW RESISTANCE SC ×3 (09:09→16:57)
[2024-03-15] MEDS: ASPIR LOW (ENTERIC COATED) 81 MG PO (09:10)
[2024-03-15] MEDS: ELIQUIS 2.5 MG PO (09:11)
[2024-03-15] MEDS: TIMOPTIC 0.5% OPHTHALMIC SOLUTION 1 DROP BOTH EYES (09:16)
[2024-03-15] MEDS: ROCEPHIN 1000 MG IV (09:17)
[2024-03-15] MEDS: STERILE WATER FOR INJECTION 10 ML IV (09:18)
[2024-03-15] MEDS: D5/0.9% SODIUM CHLORIDE 1000 IV (11:33)
[2024-03-15 12:04] VITALS: BP 102/46
[2024-03-15 12:54] LABS: Glucose - Point of Care 131 mg/dl (70-99)
--- NOTE | 2024-03-15 12:54 | PN.CDI ---
CDI
- -
CDI:
Physician Documentation Request
Admit Date: 03/12/24 14:40
Dear Doctor Audie,
Please review the following and provide your response in the progress notes.
Clinical Indicators:
Dementia was documented
- 03/14 PN 'history of dementia'
- 'Neurologic exam limited given patient dementia and patient being restrained'
- RN notes 'Patient confused, uncooperative with any care...refusing to take any PO medications...wear heart monitor'
- 'Patient ...becoming combative. Remote video monitoring...ineffective in keeping patient from pulling at IV's and pulling at drainage bag'
If possible, please further clarify any dementia associated manifestations :
Dementia with behavioral disturbances (aggressive, combative, violent)
Dementia with delirium (confusion, sundowning)
Other
Use of terms such as suspected, likely, concern for, or probable (associated with a specific diagnosis that is being evaluated, monitored, or treated as if it exists) are acceptable and can be coded in the inpatient setting, when documented at the
time of discharge.
Thank you,
Jose Willis RN
CDI Specialist
Please use your independent medical judgment in providing your response.
--- NOTE | 2024-03-15 15:09 | W.PN.HOSP.TC ---
Today's Communication/Plan
-
Goals of care discussion with patient's son Stephen. Patient is 88 years old with advanced dementia, bedbound longterm resident presented with altered mental status and toxic metabolic encephalopathy secondary to dehydration, metabolic acidosis
and acute kidney injury. Mental status slightly improved with IV volume expansion. Workup was negative for infection. Patient remains with erratic oral intake, marginal blood pressure and periods of bradycardia down to 20s. With advanced
dementia and significant failure to thrive suggested transition to hospice care. Son agreed and considering discharge back to nursing facility with initiation of hospice.
Assessment / Plan
Assessment / Plan
Impression:
88 yo male longterm resident with history of dementia and CVA presents from nursing facility with reported altered mental status transient hypotension and bradycardia.
Toxic metabolic encephalopathy secondary to below
Concern for evolving sepsis. (Hypotension, bradycardia)
Abnormal urinalysis
Aspiration risk
Acute kidney injury (? CKD unknown baseline)
Hyponatremia with hypovolemia
Hyperkalemia
Metabolic acidosis
Conditions prior to admission:
Recently seen in ED for asymptomatic COVID-19 infection.
Paroxysmal atrial fibrillation
Anticoagulation with Eliquis.
CAD. History of [place]
CHF unknown EF
CKD stage III unknown baseline creatinine
History of CVA.
COPD
Obstructive sleep apnea by history
Essential hypertension
Dyslipidemia
Diabetes type 2.
History of bladder/prostate carcinoma
History of UTI
GERD.
Plan:
Presentation with transient hypotension, bradycardia, lethargy.
Status post atropine given by EMT.
With hypotension, bradycardia, reasonable concern for evolving sepsis.
Reasonable aspiration risk given dementia.
Respiratory has been stable with no evidence of distress, bronchospasm. Does not require supplemental oxygen
Chest x-ray with clear lung head
Noted recent COVID positivity.
Urinalysis mildly abnormal.
Lactic acid normal.
Noted normal procalcitonin
Urine and blood cultures negative to date.
Empiric ceftriaxone discontinued on 03/15.
Aspiration precautions
Diet has been advanced according to speech and swallow recommendations
Initially concern for adrenal insufficiency given hypotension, bradycardia, hyperkalemia.
TSH within normal limits
Serum cortisol level: 11.4/appropriate response
Wean off IV fluids
If persistent hypotension, consider further evaluation with ACTH stim test and empiric pulse steroids.
Altered mental status secondary to toxic metabolic encephalopathy possibly secondary to infection and metabolic abnormalities.
Underlying dementia.
Neurologic exam limited given patient dementia and patient being restrained.
CT head with old right hemispheric CVA and no acute abnormalities
Continue neurologic monitoring
Aspiration precautions
Acute kidney injury
Metabolic acidosis
Hyperkalemia
Normal lactic acid level
Suspect significant dehydration with hypovolemic hyponatremia
Urostomy
Creatinine improved IV volume expansion.
Paroxysmal atrial fibrillation
Presentation ECG with sinus rhythm first-degree AV block
Transient bradycardia reported prior to admission treated with atropine by EMT.
Continue telemetry monitoring.
Hold metoprolol
Continue Eliquis
CHF by history
Unknown EF.
Monitor volume status closely
Consider echocardiogram.
Essential hypertension
With hypotension, hold clonidine, metoprolol
CAD by history
Hold metoprolol secondary to hypotension.
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
Obstructive sleep apnea by history
Respiratory status stable
Chest x-ray with no infiltrate.
Continue DuoNeb 4 times daily as needed hold inhaled corticosteroids and long-acting bronchodilators given patient inability to follow commands.
Type 2 diabetes with hypoglycemia on presentation.
Hemoglobin A1c 6.3
Hold oral hypoglycemics including metformin, glipizide, linagliptin, repaglinide.
With hypoglycemia, continue dextrose with IV fluids.
Basal bolus protocol with serial Accu-Cheks
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
Supportive care.
Preadmission regimen including memantine, risperidone, temazepam. Will attempt to reintroduce once mental status stable
CODE STATUS DNR.
DVT prophylaxis Eliquis
03/15: Goals of care discussion with patient's son Stephen. Patient is 88 years old with advanced dementia, bedbound longterm resident presented with altered mental status and toxic metabolic encephalopathy secondary to dehydration, metabolic
acidosis and acute kidney injury. Mental status slightly improved with IV volume expansion. Workup was negative for infection. Patient remains with erratic oral intake, marginal blood pressure and periods of bradycardia down to 20s. With
advanced dementia and significant failure to thrive suggested transition to hospice care. Son agreed and considering discharge back to nursing facility with initiation of hospice.
Anticipated Discharge: Within 24 hours
Subjective/Interval History
-
Date of Service: March 15, 2024
Objective Data
-
Vital Signs:
Vital Signs
Temp Pulse Resp BP Pulse Ox
97.8 F 53 16 102/46 96
03/15/24 03:55 03/15/24 12:04 03/15/24 12:04 03/15/24 12:04 03/15/24 12:04
I&O
03/14/24 03/15/24 03/16/24
06:59 06:59 06:59
Intake Total 60 / 60
Output Total 875 / 875 450 / 450 450 / 450
Balance -865 / -865 -390 / -390 -450 / -450
Physical Exam
-
General: Well Developed and No Apparent Distress
HEENT: Normocephalic, Atraumatic and Moist Mucous Membranes
Respiratory: Clear to Auscultation
Cardiac: Regular Rhythm and S1/S2; Negative Murmur, Rub or Gallop
GI: Soft, Nontender, Nondistended and Normal Bowel Sounds; Negative Organomegaly
Rectal: Deferred by Provider
Musculoskeletal: No Clubbing, No Cyanosis and No Edema
Skin: Negative Rash
Neuro: Awake, Alert, Oriented (Name only) and Nonfocal/Grossly Intact (Limited exam as patient has been resting)
--- NOTE | 2024-03-15 15:58 | CM ---
MD ordered hospice consult.
Spoke with son Stephen asked him if he would like information about hospice. He said yes and Hospice would be fine.
Spoke with [facility] provide son number and requested she given him information on hospice
.
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
report [phone]
fax [phone]
PLAN Return to [facility] possible hospice
[2024-03-15 16:54] LABS: Glucose - Point of Care 133 mg/dl (70-99)
[2024-03-15 19:15] VITALS: BP 119/63
[2024-03-15 21:27] LABS: Glucose - Point of Care 104 mg/dl (70-99)
[2024-03-15] MEDS: ELIQUIS PO (21:59)
[2024-03-15] MEDS: ERYTHROMYCIN 0.5% OPHTHALMIC OINTMENT RIGHT EYE (22:00)
[2024-03-15] MEDS: TIMOPTIC 0.5% OPHTHALMIC SOLUTION BOTH EYES (22:00)
[2024-03-15] MEDS: XALATAN OPHTHALMIC SOLUTION BOTH EYES (22:00)
[2024-03-15 23:00] VITALS: BP 147/80
[2024-03-16 03:00] VITALS: BP 155/69
[2024-03-16 06:00] VITALS: BMI 21.7
[2024-03-16 08:57] LABS: Glucose - Point of Care 101 mg/dl (70-99)
[2024-03-16] MEDS: NOVOLOG FLEXPEN-LOW RESISTANCE SC ×3 (09:00→17:22)
[2024-03-16] MEDS: TIMOPTIC 0.5% OPHTHALMIC SOLUTION 1 DROP BOTH EYES (09:00)
[2024-03-16] MEDS: ASPIR LOW (ENTERIC COATED) 81 MG PO (09:08)
[2024-03-16] MEDS: ELIQUIS 2.5 MG PO (09:08)
--- NOTE | 2024-03-16 10:15 | HOSPNOTE ---
Addendum entered by Gloria Ding RN 03/16/24 15:42:
Spoke with CM, patient will return to [facility] with their preferred provider.
Original Note:
Spoke with son Stephen and he is in agreement with hospice and for the patient to return to [facility]. We are not their preferred and the son stated that he is fine to use their preferred hospice at [facility]. CM asked to call me to discuss.
Will await phone call.
[2024-03-16 11:19] VITALS: BP 116/58
--- NOTE | 2024-03-16 12:02 | CM ---
MD ordered discharge for today.
Spoke with [facility] she spoke with son who agrees with hospice starting at [facility] with their preferred hospice[facility])
Spoke with Norma she is aware of above and accepted back. She is aware he has med sitter and non hernesto soft restraints. Pt accepted.
Medical nec form completed.
Spoke with son Stephen he agreed with above.
Hospice order faxed to [facility] will start at [facility].
DNR OOH form completed
long term care pharmacist at [facility]
report [phone]
fax [phone]
PLAN Return to [facility]
[2024-03-16 13:22] LABS: Glucose - Point of Care 85 mg/dl (70-99)
--- NOTE | 2024-03-16 14:31 | W.DS.TRANS ---
DC Summary - Wellness Consultant
-
Discharge Instructions:
Discharge Diagnosis/Procedures Advanced senile dementia with failire to thrive
Diet Regular
Instructions:
Stand-Alone Forms:
Changes to Home Medications: Yes
Discharge Medications:
DC Medications w/original date entered in [employer]
acetaminophen 325 mg tablet 650 mg PO Q6HPRN PRN temp >100.4/mild pain 03/12/24
Home Medication Changes
Discharge with initiation of hospice at [place]
Pending Results: No
[2024-03-16 15:37] VITALS: BP 130/66
[2024-03-16 17:08] LABS: Glucose - Point of Care 81 mg/dl (70-99)
--- NOTE | 2024-03-16 18:22 | PTCARENOTE ---
Call placed to [facility] to give report on pt prior to 1900 coal picker. Called x2 and rang until going to [facility]. IV and tele monitor removed. Awaiting transport coal picker from [facility].
--- NOTE | 2024-03-19 10:05 | CM ---
KASSIDY Green/Cecilia Cabrera requesting Discharge packet, Discharge Summary and Hospice order.
taxed to [phone].
== END 2024-03-16 20:27 | DRG 314 ==
LOC: 3 WEST ACU 14:40
PROVIDERS: ADMITTING PHYSICIAN Internal Medicine; ATTENDING PHYSICIAN Internal Medicine; EMERGENCY PHYSICIAN Emergency Medicine; FAMILY PHYSICIAN Internal Medicine
DX: I95.9 Hypotension, unspecified (principal); G92.8 Other toxic encephalopathy; I13.0 Hypertensive heart and chronic kidney disease with heart failure and stage 1 through stage 4 chronic kidney disease, or unspecified chronic kidney disease; N17.9 Acute kidney failure, unspecified; J44.0 Chronic obstructive pulmonary disease with (acute) lower respiratory infection; E87.1 Hypo-osmolality and hyponatremia; E87.20 Acidosis, unspecified; F03.918 Unspecified dementia, unspecified severity, with other behavioral disturbance; E87.5 Hyperkalemia; N18.30 Chronic kidney disease, stage 3 unspecified; E11.22 Type 2 diabetes mellitus with diabetic chronic kidney disease; Z79.84 Long term (current) use of oral hypoglycemic drugs; Z66 Do not resuscitate; I48.0 Paroxysmal atrial fibrillation; I25.10 Atherosclerotic heart disease of native coronary artery without angina pectoris; E86.1 Hypovolemia; E87.6 Hypokalemia; Z86.16 Personal history of COVID-19
CPT/HCPCS: 71045; 80053; 81003; 81015; 82248; 82533; 82962; 83036; 83605; 84145; 84443; 85025; 85027; 87040; 87070; 87086; 92610; 93005; 94640; 96360; 99285

== ENCOUNTER 2024-03-24 02:15 | Emergency (ER) | payer MEDICARE, OTHER, SELFPAY ==
--- NOTE | 2024-03-24 02:17 | ED.GENMED ---
History of Present Illness
<AROLDO Seals - Last Filed: 03/24/24 04:21>
General
Chief Complaint: Fall
Time Seen by Provider: 03/24/24 02:17
<Richard Ding DO - Last Filed: 03/24/24 04:14>
General
Source: patient
Exam Limitations: none
History of Present Illness
History of Present Illness:
See MDM
Past History
<AROLDO Seals - Last Filed: 03/24/24 04:21>
Past History
ED Past Medical History: Arrthythmia (Paroxysmal atrial fibrillation), CAD, Cancer (Prostate cancer), CHF, COPD, GERD, HTN, Hypercholesterolemia, NIDDM, NV, Renal failure (Chronic kidney disease stage III) and Other (Obstructive sleep apnea,
pneumonia, sepsis, pleural effusion, metabolic encephalopathy, bladder cancer, UTI, COVID-positive January 2024)
Social History
Tobacco: Non-smoker
Alcohol: None
Drug: None
Living: prison
Employment: Not employed
Family History
Family History: Unable to obtain
Phy Exam
<Richard Ding DO - Last Filed: 03/24/24 04:14>
Physical Exam
Physical Exam:
See MDM
Course
<AROLDO Seals - Last Filed: 03/24/24 04:21>
Orders/Labs/Results
Orders:
Orders
03/24/24 02:17
CT Cervical Spine W/o Iv Contr Urgent
Comment:
Reason For Exam: fall/headstrike
CT Head W/o Iv Contrast Urgent
Comment:
Reason For Exam: headstrike/thinners
Vital Signs
Initial and Last Documented VS:
Initial Vital Signs
Temp Pulse Resp BP Pulse Ox
97.9 F 66 19 114/64 96
03/24/24 02:24 03/24/24 02:24 03/24/24 02:24 03/24/24 02:24 03/24/24 02:24
Last Documented Vital Signs
Temp Pulse Resp BP Pulse Ox
97.9 F 66 19 114/64 93
03/24/24 02:24 03/24/24 02:24 03/24/24 02:24 03/24/24 02:24 03/24/24 02:45
<Richard Ding, DO - Last Filed: 03/24/24 04:14>
Orders/Labs/Results
Orders:
Orders
03/24/24 02:17
CT Cervical Spine W/o Iv Contr Urgent
Comment:
Reason For Exam: fall/headstrike
CT Head W/o Iv Contrast Urgent
Comment:
Reason For Exam: headstrike/thinners
Vital Signs
Initial and Last Documented VS:
Initial Vital Signs
Temp Pulse Resp BP Pulse Ox
97.9 F 66 19 114/64 96
03/24/24 02:24 03/24/24 02:24 03/24/24 02:24 03/24/24 02:24 03/24/24 02:24
Last Documented Vital Signs
Temp Pulse Resp BP Pulse Ox
97.9 F 66 19 114/64 93
03/24/24 02:24 03/24/24 02:24 03/24/24 02:24 03/24/24 02:24 03/24/24 02:45
Procedures
<Richard Ding, DO - Last Filed: 03/24/24 04:14>
Laceration Closure
Right Posterior Scalp:
Status of Wound: clean
Size of Wound in cm: 4
Description of Wound Edges: sharp
Preparation: cleaned with soap & water
Revision/Debridement: routine- no revision
Wound exploration: explored to base- no FB
Type of Closure: other
Skin Closure Material: skin erki
Number of sutures: 6
<Richard Ding, DO - Last Filed: 03/24/24 04:14>
MDM/Problems Addressed
Differential Diagnosis Includes:
HPI and MDM Narrative:
88-year-old male presenting for evaluation of a fall from bed. Patient apparently rolled out of bed and hit his head. Patient does have a 4 cm linear laceration to his right posterior scalp. He is on Eliquis but there is no active bleeding.
Patient is demented and apparently at his baseline per EMS.
Given the age and fall while being anticoagulated, will obtain CT of the neck
Physical exam
General: Well appearing and non-toxic. Sitting in bed comfortably. No acute distress
HEENT: protecting airway. 4 cm linear laceration to right posterior scalp. No active bleed
Neck: supple
CV: No evidence of cyanosis
Resp: No accessory muscle use. Lungs clear
Abd: Non-distended
Extremities: No deformities. No tenderness to palpation of either extremity
Neuro: alert. Pleasantly confused
Psych: Flat affect
Skin: Intact
Problems Addressed including Acute and Chronic Conditions affecting care:
1. Head injury
Acuity: acute
Prognosis: stable
Details: Will obtain CT head and neck. Will ultimately place erik
Updates
CT head and neck negative. Patient remains well-appearing nontoxic. Will discharge back to his facility
Differential Diagnosis (but not limited to): Intracranial hemorrhage, contusion, laceration
Testing considered: Basic blood work
Drug therapy (if applicable): OTC meds, please see d/c instruction regarding Rx drugs
Amount and/or Complexity of Data Reviewed
Clinical info obtained from: Patient. EMS stating that he is at his baseline
External data reviewed: N/A
Labs I independently reviewed (but not limited to): N/A
Radiology: The CT scan was personally and independently reviewed. In addition, official CT report reviewed.
Pulse Ox: not hypoxic
EKG independently reviewed: N/A
Geriatric Psychiatrist: N/A
Critical Care: N/A
Risk of Complication:
Social Determinants of health: Good social support
Discussed with other providers: N/A
Escalation of Care includes Admit/Obs: After being observed in the Emergency Department, pt stable for discharge.
Occasional wrong word or 'sound a like' substitutions may have occurred due to the inherent limitations of voice recognition software. Read the chart carefully and recognize, using context, where substitutions have occurred.
<AROLDO Seals - Last Filed: 03/24/24 04:21>
*Critical Care Note
Total Time (30-74mins, 75-104mins- exclusive of procedures): Not Applicable
ED Attending Note
<AROLDO Seals - Last Filed: 03/24/24 04:21>
-
Portions of this chart may have been created with voice recognition software.� Occasional wrong word or��sound alike� substitutions may have occurred due to the inherent limitations of voice recognition software.
Discharge Plan
Departure
Discharge Problem:
Laceration of scalp
Prescriptions:
No Action
acetaminophen 325 mg Tablet
650 mg PO Q6HPRN PRN (Reason: temp >100.4/mild pain)
Activity Restrictions/Additional Instructions:
Please return for any worsening symptoms.
You may return at any time if you have further concerns.
Please follow up with your doctor at the first available appointment, preferably this week. Please have your 6 scalp erik removed in 7 days.
Thank you for choosing [facility].
Interventions
Interventions:
*Risk Screen - Suicide Last Done: 03/24/24 02:19
*General Assessment Last Done: 03/24/24 02:19
*Neglect/Abuse Screening Last Done: 03/24/24 02:19
ED- Fall Risk Assessment Last Done: 03/24/24 02:54
*ED COVID-19 Vaccine History Last Done: 03/24/24 02:19
ED- Neurological Assessment Last Done: 03/24/24 02:54
ED-Skin Assessment Last Done: 03/24/24 02:58
Discharge Date and Time
Print Language: ITALIAN
[2024-03-24 02:24] VITALS: BP 114/64
[2024-03-24 03:14] VITALS: BP 109/40
[2024-03-24 04:00] VITALS: BP 119/49
[2024-03-24 05:00] VITALS: BP 104/91
== END 2024-03-24 06:06 | disposition home or self-care (01) ==
LOC: EMR 02:15
PROVIDERS: EMERGENCY PHYSICIAN Student in an Organized Health Care Education/Training Program; FAMILY PHYSICIAN Internal Medicine
DX: S01.01XA Laceration without foreign body of scalp, initial encounter (principal); W19.XXXA Unspecified fall, initial encounter; I48.0 Paroxysmal atrial fibrillation; I25.10 Atherosclerotic heart disease of native coronary artery without angina pectoris; I13.0 Hypertensive heart and chronic kidney disease with heart failure and stage 1 through stage 4 chronic kidney disease, or unspecified chronic kidney disease; I50.9 Heart failure, unspecified; E11.22 Type 2 diabetes mellitus with diabetic chronic kidney disease; N18.30 Chronic kidney disease, stage 3 unspecified; G47.33 Obstructive sleep apnea (adult) (pediatric); E78.00 Pure hypercholesterolemia, unspecified; J44.9 Chronic obstructive pulmonary disease, unspecified; K21.9 Gastro-esophageal reflux disease without esophagitis; Z85.46 Personal history of malignant neoplasm of prostate; Z85.51 Personal history of malignant neoplasm of bladder; Z86.16 Personal history of COVID-19; Z87.440 Personal history of urinary (tract) infections
CPT/HCPCS: 99284; 12002; 70450; 72125